=== PATIENT | male | born 1950 | race Caucasian/White ===

== ENCOUNTER 2017-05-05 05:00 | Inpatient (IN) ==
[2017-04-29 15:59] LABS: Basophils # (Auto) 0 K/mcL (0.0-0.3); Basophils % (Auto) 0.4 % (0.0-2.0); Eosinophils # (Auto) 0.1 K/mcL (0.0-0.7); Eosinophils % (Auto) 1.4 % (0.0-7.0); Granulocytes % (Auto) 70.2 % (38.0-78.0); Lymphocytes # (Auto) 1.8 K/mcL (1.5-4.8); Lymphocytes % (Auto) 18.7 % (15.5-49.0); Mean Cell Volume 98.8 fL (80.0-100.0); Mean Corpuscular HGB Conc 33.5 g/dL (31.0-36.0); Mean Corpuscular Hemoglobin 33.1 pg (26.0-34.0); Monocytes # (Auto) 0.9 K/mcL (0.1-0.9); Monocytes % (Auto) 9.3 % (1.0-12.0); Platelet Count 300 K/mcL (140-440); RBC 4.48 M/mcL (4.50-5.90); Red Cell Distribution Width 13.3 % (11.5-14.5)
[2017-04-29 16:05] LABS: Blood Urea Nitrogen 22 mg/dl (8-23)
[2017-04-29 16:46] LABS: Appearance,Urine CLEAR; Bacteria,Urine 0 /hpf (0); Bilirubin,Urine NEG (NEG); Color,Urine YELLOW; Glucose,Urine (UA) NEGATIVE (NEG); Leukocyte Esterase,Urine NEG /uL (NEG); Mucus,Urine FEW /hpf (0); Protein,Urine 30 mg/dL (NEG); Specific Gravity,Urine 1.029 (1.000-1.035); Urine Blood NEG mg/dL (<0.03); Urine Hyaline Cast 8 /lpf (0-2); Urine RBC 2 /hpf (0-1); Urine Squamous Epithelial Cell < 1 /hpf (0-4); Urine WBC 1 /hpf (0-4); Urobilinogen,Urine NEG (NEG)
[2017-05-05] MEDS ORDERED: ceFAZolin 1 GM VIAL IV SCH (06:00)
[2017-05-05] MEDS ORDERED: oxyCODONE 10 MG TAB.ER.12H PO SCH (06:00)
[2017-05-05] MEDS ORDERED: CELECOXIB 200 MG CAPSULE PO SCH (06:00)
[2017-05-05] MEDS ORDERED: PREGABALIN 75 MG CAPSULE PO SCH (06:00)
[2017-05-05] MEDS ORDERED: LIDOCAINE HCL/PF 100 MG/5 ML SYRINGE IV ONE (07:35)
[2017-05-05] MEDS ORDERED: TRANEXAMIC ACID 1,000 MG/10 ML VIAL IV ONE ×2 (07:35→09:24)
[2017-05-05] MEDS ORDERED: PROPOFOL 200 MG/20 ML VIAL IV ONE (07:35)
[2017-05-05] MEDS ORDERED: KETAMINE 100 MG/ML ML IV ONE (07:35)
[2017-05-05] MEDS ORDERED: MIDAZOLAM 2 MG/2 ML VIAL IV ONE (07:35)
[2017-05-05] MEDS ORDERED: ePHEDrine 50 MG/ML AMPUL IV ONE (07:35)
[2017-05-05] MEDS ORDERED: ONDANSETRON 4 MG/2 ML VIAL IV ONE (07:35)
[2017-05-05] MEDS ORDERED: GLYCOPYRROLATE 0.2 MG/ML VIAL IV ONE (07:35)
[2017-05-05] MEDS ORDERED: DEXAMETHASONE 10 MG/ML VIAL IV ONE (07:35)
[2017-05-05] MEDS ORDERED: PHENYLEPHRINE 10 MG/ML VIAL IV ONE (07:35)
[2017-05-05] MEDS ORDERED: HEPARIN 20,000 UNIT/ML VIAL IR ONE (08:15)
[2017-05-05] MEDS ORDERED: PROMETHAZINE 25 MG/ML VIAL IV PRN (08:42)
[2017-05-05] MEDS ORDERED: NALOXONE HCL 0.4 MG/ML VIAL IV PRN (08:42)
[2017-05-05] MEDS ORDERED: MEPERIDINE 25 MG/ML SYRINGE IV PRN (08:42)
[2017-05-05] MEDS ORDERED: ACETAMINOPHEN 1,000 MG/100 ML BOTTLE IV ONE (08:42)
[2017-05-05] MEDS ORDERED: ONDANSETRON 4 MG/2 ML VIAL IV PRN ×2 (08:42→09:24)
[2017-05-05] MEDS ORDERED: LACTATED RINGERS 250 ML IV PRN (08:42)
[2017-05-05] MEDS ORDERED: IPRATROPIUM/ALBUTEROL 3 ML AMPUL.NEB NEB PRN (08:42)
[2017-05-05] MEDS ORDERED: BENZOCAINE/MENTHOL 1 LOZENGE PO PRN ×2 (08:42→09:24)
[2017-05-05] MEDS ORDERED: fentaNYL 100 MCG/2 ML VIAL IV PRN (08:42)
[2017-05-05] MEDS ORDERED: FLUMAZENIL 0.1 MG/ML ML IV PRN (08:42)
[2017-05-05] MEDS ORDERED: METHOCARBAMOL 1,000 MG/10 ML VIAL IV PRN (08:42)
[2017-05-05] MEDS ORDERED: LACTATED RINGERS 1,000 ML IV SCH (08:45)
[2017-05-05] MEDS ORDERED: MAGNESIUM HYDROXIDE 30 ML ORAL.SUSP PO PRN (09:24)
[2017-05-05] MEDS ORDERED: POLYETHYLENE GLYCOL 3350 17 GM PACKET PO PRN (09:24)
[2017-05-05] MEDS ORDERED: FLEETS ADULT ENEMA PR PRN (09:24)
[2017-05-05] MEDS ORDERED: KETOROLAC 30 MG/ML VIAL IV PRN (09:24)
[2017-05-05] MEDS ORDERED: HYDROmorphone 2 MG/ML VIAL IV PRN (09:24)
[2017-05-05] MEDS ORDERED: BISACODYL 10 MG SUPP.RECT PR PRN (09:24)
--- NOTE | 2017-05-05 09:24 | Brief Operative Note ---
Date of procedure: 05/05/17 Pre-op diagnosis: R hip severe OA Post-op diagnosis: same Procedure: Right anterior total hip arthroplasty Grafts/Implants: Yes (Depuy Actis 8 HO stem, +1.5 36 delta head, 58 cup, neutral altrx liner) Anesthesia: spinal, GLMA Findings: severe OA Complications: none Surgeon: Steven Barnes Pencil Sorter: Sheeba Randolph Estimated blood loss (cc): 150 Specimens Removed/Pathology: none sent Condition: stable Disposition: PACU
--- NOTE | 2017-05-05 10:44 | XRay Report ---
HISTORY: Reason for Exam:post op FINDINGS: There is a well-positioned right total hip prosthesis. No fracture is present and there are no abnormal soft tissue calcifications around the joint. Moderate osteoarthritis is present in the left hip with a large ring of spurs around the margin of the femoral head. Joint space is mildly narrowed. A moderate amount of calcified plaque is present in the iliac and femoral arteries. IMPRESSION: Well-positioned right hip prosthesis Interpreted and Authenticated by: Carlitos Krueger 05/05/17
--- NOTE | 2017-05-05 11:01 | Operative Note ---
DATE OF OPERATION: 05/05/2017 PREOPERATIVE DIAGNOSIS: Right hip severe osteoarthritis. POSTOPERATIVE DIAGNOSIS: Right hip severe osteoarthritis. PROCEDURE PERFORMED: Right anterior total hip arthroplasty using a DePuy Actis size 8 high offset femoral stem; a +1.5, 36 mm delta ceramic head ball; a 58 no-hole [place] cup with a neutral AltrX liner. SURGEON: Steven Barnes M.D. HAUNTED HISTORY TOUR GUIDE: Sheeba Randolph PA-C. ANESTHESIA: Spinal plus general. DRAINS: None. SPECIMENS: None. COMPLICATIONS: None. BLOOD LOSS: 200 mL. POSTOPERATIVE CONDITION: Stable. INDICATIONS FOR SURGERY: This is a 66-year-old male who has had longstanding severe right hip pain. Radiographs showed severe [id number] osteoarthritis with protrusio. FINDINGS AT SURGERY: Post implantation showed excellent component position with leg length and offset zoroastrianism. PROCEDURE IN DETAIL: The patient had been seen preoperatively. Informed consent had been obtained after discussion of risks and benefits of surgery. Risks including, but not limited to, bleeding, possibly requiring transfusion; infection, possibly requiring implant removal and prolonged IV antibiotics; injury to nerves, blood vessels, and other surrounding structures; anesthetic risks; incomplete or no resolution of symptoms; leg length discrepancy; dislocation; fracture; DVT and pulmonary embolus risks; and the possibility of needing further revision surgery. He understood these risks and wished to proceed. Correct operative site was marked in preoperative holding and spinal anesthesia was given. He was taken to the operating room and LMA general was given. He was carefully positioned on the [place] table and then the right hip and groin were carefully prepped and draped in normal sterile fashion, and a time-out was performed verifying patient name, operative site, and plan. Standard anterior approach incision was made with a scalpel through skin and subcutaneous tissue. Hemostasis was obtained with Bovie cautery. Careful blunt dissection was taken down onto the tensor fascia and this was undermined circumferentially. Irrisept was irrigated, and a ring retractor was placed. The tensor fascia was incised in line with the muscle fibers. We then carefully bluntly dissected medial to the muscle belly and blunt cobra retractors were placed on the superior and inferior neck. Circumflex vessels were coagulated and cut and vastus fascia was split distally. An anterior capsulectomy was performed and capsule releases done. Three turns of traction was placed on the leg. However, he had such severe protrusio that there was limited mobility. We placed a corkscrew in the femoral head and used osteotome under fluoro to identify our neck cut trajectory. We then made our neck cut. However, the severity of the protrusio made it difficult to remove the head, so we ended up fragmenting the head using osteotome and then removing it piecemeal. We also had to remove some of the osteophyte around the acetabulum. Once we had the head removed, we exposed the acetabulum. He had such severe protrusio that we had jumped up in reamer size up to about 54 before we started really reaming and went up to a 57 reamer before we had rim ream. We opened the 58 no-hole [place] cup. We irrigated the acetabulum with Irrisept. After a minute, pulse lavaged copiously with saline and then using the [id number] impacted the cup at approximately 40 degrees of inclination and 25 degrees of anteversion. We got excellent pressfit. A center hole cover was placed. We removed large osteophytes circumferentially around the cup, particularly anterior and inferior. This took quite a bit of time. Once we had osteophytes removed, we placed a center hole cover and a neutral AltrX liner was impacted. We then exposed the femur after removing traction from the leg. Capsule releases were continued and then box osteotome, awl, and then rongeur and rasp were used to initialize entry into the femoral canal. We then used the [id number] to broach up to a size 6. We placed a high offset neck trial with a 1.5 head ball. Hip was reduced. AP pelvis was taken to verify neutral rotation. AP of the nonoperative and operative hips were overlaid. Our offset and leg length looked good. However, our stem size looked undersized, so we went ahead and redislocated. I was able to broach up with the [id number] up to a size 8. We then removed the trial. A size 8 high offset Actis stem was opened. We irrigated the femoral canal copiously with saline, after first irrigating it with Irrisept. We then impacted the stem. It seated about a millimeter off of our neck cut. We opened a +1.5 head ball. The stem was cleaned and dried and then head ball impacted with the [id number]. We then reduced the hip. Fluoro was brought in. Final x-rays were taken which showed good component position. The canal was filled with the stem. We then irrigated with Irrisept, after a minute pulse lavaged. We then used #1 Vicryl to close the tensor fascia. We then irrigated with Irrisept again and then tacked fat to fascia with the Vicryl and then 2-0 Monocryl was used for subcutaneous and dorcas for skin. Xeroform and sterile dressing were applied. The patient was then awakened, extubated, and transferred to recovery in stable condition. BJB:mylene Job ID: [id number] Doc ID: [id number] Steven Barnes MD
[2017-05-05] MEDS ORDERED: DIGOXIN 125 MCG TABLET PO SCH (14:00)
[2017-05-05] MEDS: ceFAZolin 1 GM VIAL IV SCH ×2 (14:31→23:27)
[2017-05-05] MEDS: 0.9 % SODIUM CHLORIDE 1,000 ML IV SCH ×2 (14:32→19:32)
[2017-05-05] MEDS: 0.9 % SODIUM CHLORIDE 10 ML SYRINGE IV SCH ×2 (14:33→20:58)
[2017-05-05] MEDS: HYDROcodone/APAP 10/325MG TABLET PO PRN ×2 (14:51→18:44)
[2017-05-05] MEDS: DOCUSATE SODIUM 100 MG CAPSULE PO SCH (20:54)
[2017-05-05] MEDS: METOPROLOL TARTRATE 50 MG TABLET PO SCH (20:54)
[2017-05-05] MEDS: ASPIRIN 325 MG ENTERIC COATED TABLET PO SCH (20:55)
[2017-05-05] MEDS: ALLOPURINOL 100 MG TABLET PO SCH (20:55)
[2017-05-05] MEDS ORDERED: SIMVASTATIN 40 MG TABLET PO SCH (21:00)
[2017-05-05] MEDS ORDERED: SENNOSIDES 1 TABLET PO SCH (21:00)
[2017-05-06] MEDS: HYDROcodone/APAP 10/325MG TABLET PO PRN ×3 (01:59→10:47)
[2017-05-06] MEDS: 0.9 % SODIUM CHLORIDE 1,000 ML IV SCH (04:19)
[2017-05-06] MEDS: 0.9 % SODIUM CHLORIDE 10 ML SYRINGE IV SCH (05:38)
--- NOTE | 2017-05-06 08:00 | Discharge Summary ---
Ortho Discharge - MATTIE - Patient Instructions Diet: Regular Diet Activity: activity as tolerated, weight bearing as tolerated Total Hip Protocol: Follow activity instructions as provided by Physical Therapy. Dressing Care: May shower in 2 days Patient Education: Total Hip Replacement (DC) Additional Instructions: [facility] [phone] Call at 8:00 on Wednesday to set up an appointment as soon as possible. Your orders have been faxed to them. - Follow Up Plan Follow Up Appointments: Pernell Giang PA-C [Physician Receptionist Telephone Operator] - 05/20/17 10:00 am Disposition: Home, Self-Care Prognosis: Good Rehab Potential: Good - Orders For Discharge Additional Discharge Orders: Physical Therapy at Discharge - MATTIE Location: Determined By Patient Toilet Riser Discharge Order Location: Determined By Patient Walker Location: Determined By Patient
[2017-05-06] MEDS: DOCUSATE SODIUM 100 MG CAPSULE PO SCH (08:15)
[2017-05-06] MEDS: ALLOPURINOL 100 MG TABLET PO SCH (08:16)
[2017-05-06] MEDS: ASPIRIN 325 MG ENTERIC COATED TABLET PO SCH (08:16)
[2017-05-06] MEDS: METOPROLOL TARTRATE 50 MG TABLET PO SCH (08:16)
[2017-05-06] MEDS ORDERED: DILTIAZEM 120 MG CAP.XL.24H PO SCH (09:00)
[2017-05-06] MEDS ORDERED: LOSARTAN 50 MG TABLET PO SCH (09:00)
--- NOTE | 2017-05-06 09:10 | Orthopedic Progress Note ---
Subjective Patient information: Note initiated : 05/06/17 at 9:09 am Service Date, if different from initiated Date: [] Patient: Rohit Cohn 66 y/o M admitted on 05/05/17 for Right Total Hip Arthroplasty. Chief Complaint: [] Principal diagnosis: s/p R MATTIE Interval history: pain well controlled, wants to go home Objective Vital signs: Vital Signs Temp Pulse Resp BP Pulse Ox 05/06/17 08:00 97.5 F 73 18 128/67 98 05/06/17 04:00 97.5 F 70 18 133/71 95 05/06/17 00:00 98.0 F 83 18 107/65 91 05/05/17 20:00 98.4 F 93 H 20 127/69 91 05/05/17 18:50 92 05/05/17 16:00 98.3 F 18 143/88 94 05/05/17 13:08 70 150/80 96 05/05/17 12:53 71 155/80 96 05/05/17 12:38 66 133/85 96 05/05/17 12:23 65 126/76 96 05/05/17 12:08 60 129/80 96 05/05/17 11:38 65 118/74 96 05/05/17 11:23 63 126/82 95 05/05/17 10:40 69 18 95 05/05/17 10:30 97.0 F 71 18 110/77 96 05/05/17 10:21 68 17 100/58 94 05/05/17 10:16 68 18 89/33 98 05/05/17 10:11 79 15 106/62 98 05/05/17 10:06 64 11 L 108/64 97 05/05/17 10:01 66 12 93/49 97 05/05/17 09:56 69 12 114/72 97 05/05/17 09:51 68 12 118/63 98 05/05/17 09:45 67 13 111/64 98 05/05/17 09:40 58 L 11 L 98/50 98 05/05/17 09:35 98.9 F 61 12 98/50 97 Intake and Output 05/05/17 05/06/17 05/06/17 21:59 05:59 13:59 Intake Total 1300 / 1300 2150 / 2150 Output Total 500 / 500 1110 / 1110 Balance 800 / 800 1040 / 1040 Intake: IV 1000 / 1000 Sodium Chloride 0.9% 1,000 ml @ 1000 / 1000 100 mls/hr IV .Q10H ADELFO Rx#: [id number] Oral 1300 / 1300 1150 / 1150 Output: Void Amount 500 / 500 1110 / 1110 Straight 500 / 500 Other: Weight 208 lb 8 oz Intake & Output: Intake & Output 05/05/17 05/06/17 05/06/17 21:59 05:59 13:59 Intake Total 1300 / 1300 2150 / 2150 Output Total 500 / 500 1110 / 1110 Balance 800 / 800 1040 / 1040 Weight 208 lb 8 oz Intake: IV 1000 / 1000 Sodium Chloride 0.9% 1,000 ml @ 1000 / 1000 100 mls/hr IV .Q10H ADELFO Rx#: [id number] Oral 1300 / 1300 1150 / 1150 Output: Void Amount 500 / 500 1110 / 1110 Straight 500 / 500 Neurological exam IM: Yes alert, Yes oriented X3 - Labs CBC & BMP: 05/06/17 04:18 04/29/17 14:31 Labs: Orthopedic Labs 05/05/17 05:24 PT 12.5 INR 0.9 05/06/17 04/29/17 04:18 14:32 Hgb 11.9 L 14.8 Hct 34.8 L 44.3 Assessment and Plan (1) S/P total hip arthroplasty POD#1-stable -d/c home Status: Acute
== END 2017-05-06 12:30 | disposition home or self-care (01) | DRG 470 ==
LOC: MEDSUR 05:00
PROVIDERS: ADMIT Orthopaedic Surgery; ATTEND Orthopaedic Surgery